=== PATIENT | female | born 2000 | race Caucasian/White ===

== ENCOUNTER 2024-02-02 15:28 | Outpatient (CLI) | payer OTHER ==
--- NOTE | 2024-02-02 17:07 | Ultrasound Report ---
PROCEDURE: Transvaginal INDICATIONS: AMENORRHEA TECHNIQUE: Real-time endovaginal scanning was performed of the pelvic organs, with image documentation. COMPARISON: None. FINDINGS: Uterus: Uterus is anteverted and normal in size at 6.2 x 2.7 x 3.5 cm. The myometrium is homogeneou s. The endometrium measures 7.4 mm in combined thickness. No uterine fibroids. Ovaries: The right ovary measures 2.4 x 2.2 x 1.5 cm, with a calculated ovarian volume of 4.2 cc. T he left ovary measures 3.2 x 2.4 x 1.8 cm, with a calculated ovarian volume of 7.1 cc. The ovaries h ave a normal sonographic appearance. Less than 12 follicles can be seen in each ovary. No adnexal m asses are seen. No cystic lesions measuring greater than 3 cm. Other: No pathologic free abdominal or pelvic fluid. IMPRESSION: No cause for patient's symptoms is identified. Normal appearance of the uterus and ovaries. Reviewed by: Alfonzo Hamilton MD on 02/02/2024 5:06 PM PDT Approved by: Alfonzo Hamilton MD on 02/02/2024 5:06 PM PDT Station ID: [id number]
== END 2024-02-02 15:29 | disposition home or self-care (01) ==
LOC: DI 15:28
PROVIDERS: ATTEND Nurse Practitioner Family
DX: N91.2 Amenorrhea, unspecified (principal)